=== PATIENT | male | born 1975 | race Two or more races ===

== ENCOUNTER 2021-01-11 18:08 | Emergency (ER) | payer MEDICAID, OTHER ==
[~2021-01-11] VITALS: Ht 162.6 cm; Wt 68.0 kg
[2021-01-11] MEDS ORDERED: fentaNYL CITRATE 100 MCG/2 ML VL IV ONE (19:00)
[2021-01-11] MEDS ORDERED: SODIUM CHLORIDE 0.9% 1,000 ML IV ONE ×3 (19:00→22:45)
[2021-01-11] MEDS ORDERED: ONDANSETRON HCL 4 MG/2 ML VIAL IV ONE (19:00)
[2021-01-11 20:45] LABS: Basophils # (auto) 0.1 10 ^3/uL (0-0.2); Basophils % (auto) 0.8 % (0.0-2.0); Eosinophils # (auto) 0.1 10 ^3/uL (0-0.8); Eosinophils % (auto) 0.5 % (0.0-7.0); Hematocrit 45.5 % (41.0-53.0); Hemoglobin 15.7 g/dL (13.5-17.5); Lymphocytes # (auto) 1.2 10 ^3/uL (0.4-5.4); Lymphocytes % (auto) 9.3 % (10.0-50.0); Mean Corpuscular Hemoglobin 28.3 pg (28.0-32.0); Mean Corpuscular Hgb Conc. 34.5 g/dL (32.0-36.0); Mean Corpuscular Volume 82.1 fL (80.0-100.0); Monocytes # (auto) 0.5 10 ^3/uL (0-1.3); Monocytes % (auto) 3.7 % (0.0-12.0); Neutrophils # (auto) 11.5 10 ^3/uL (1.6-8.6); Neutrophils % (auto) 85.7 % (37.0-80.0); Nucleated Red Blood Cells % 0.1 %; Red Blood Cells 5.54 10^6/uL (4.5-5.90); Red Cell Distribution Width 14.8 % (11.8-14.3); White Blood Cell 13.4 10^3/uL (4.4-10.8)
[2021-01-11 21:01] LABS: Albumin 4.6 g/dL (3.4-5.0); BUN/Creatinine Ratio 10.6; Calcium 8.5 mg/dL (8.5-10.1); Magnesium 2.6 mg/dL (1.6-2.6); Potassium 3.9 mmol/L (3.5-5.1)
[2021-01-11 21:04] LABS: Bilirubin, Total 0.5 mg/dL (0.2-1.0); Total Protein 7.9 g/dL (6.4-8.2)
[2021-01-11] MEDS ORDERED: IOHEXOL 300 MG/ML 100ML BOTTLE IJ ONE (21:18)
[2021-01-11 22:44] LABS: INR 1.02 (0.9-1.15)
[2021-01-11 23:00] VITALS: BP 117/67
[2021-01-11 23:08] LABS: Urine Bacteria NONE SEEN /hpf (None Seen); Urine Blood 3+ /uL (Negative); Urine Mucus FEW (None Seen); Urine Specific Gravity 1.019 (1.001-1.035); Urine WBC 4 /hpf (0 - 3)
== END 2021-01-12 01:16 | disposition home or self-care (01) ==
LOC: ER 18:08
DX: K59.00 Constipation, unspecified (principal); R16.0 Hepatomegaly, not elsewhere classified; J98.11 Atelectasis; N28.89 Other specified disorders of kidney and ureter; F17.210 Nicotine dependence, cigarettes, uncomplicated
CPT/HCPCS: 36415; 74177; 80053; 81001; 83605; 83690; 83735; 85025; 85610; 87040; 96361; 96374; 96375; 99285; J2405; J3010; J7030; Q9967